=== PATIENT | male | born 1980 | race Caucasian/White ===

== ENCOUNTER 2016-11-16 10:33 | Emergency (ER) | payer BC ==
--- NOTE | 2016-11-16 11:08 | Emergency Department Record ---
History of Present Illness - General Chief Complaint: Syncope Stated Complaint: PASSED OUT AT WORK Time Seen by Provider: 11/16/16 10:46 Source: Patient Mode of Arrival: Ambulatory Limitations: No limitations - History of Present Illness Initial Comments: The patient is here due to possibly passing out at work an hour ago. He states he was working outside like he normally does and then woke up on the ground. He thinks he passed out and has 10-15 minutes that he cannot account for. There were no witnesses to the event. He denies any injury or neck pain and denied any CP, SOB, or RAFI prior. The patient also passed out 2 weeks ago and did fx some ribs. On that visit he was seen at [facility] and was admitted to the hospital overnight. He also did have an EST yesterday at [facility] that was reported to be normal. The patient has no hx of similar issues. The patient has no family hx of similar issues or seizures. MD Complaint: Loss of consciousness Onset/Timin -: Minutes(s) Current Symptoms: None History: Previous syncopal episode Treatments Prior to Arrival: None - Veronica Coma Scale Eye Response: (4) Open spontaneously Motor Response: (6) Obeys commands Verbal Response: (5) Oriented [place] Total: 15 - Related Data Home Medications Medication Instructions Recorded Confirmed Last Taken Fluoxetine HCl [Prozac] 30 mg PO DAILY 11/16/16 11/16/16 11/16/16 Omeprazole [Prilosec] 20 mg PO DAILY 11/16/16 11/16/16 11/16/16 Allergies Allergy/AdvReac Type Severity Reaction Status Date / Time bupropion [From Wellbutrin] AdvReac HYPERSENSIT Verified 11/16/16 10:45 [facility] Travel Screening - Travel/Exposure Within Last 30 Days Have you traveled within the last 30 days?: No - Travel/Exposure Within Last Year Have you traveled outside the [place] in the last year?: No - Additonal Travel Details Have you been exposed to anyone with a communicable illness?: No - Travel Symptoms Symptom Screening: None Review of Systems Constitutional: Denies: Chills, Fever Eyes: Denies: Eye discharge ENT: Denies: Congestion Respiratory: Denies: Cough, Dyspnea Past Medical History - SOCIAL HISTORY Smoking Status: Current every day smoker Alcohol Use: Occasional Drug Use: None - RESPIRATORY Hx Respiratory Disorders: No - CARDIOVASCULAR Hx Cardio Disorders: No - NEURO Hx Neuro Disorders: Yes Hx Seizures: Yes (younger) - GI Hx Abdominal Pain: Yes Hx Ulcer: Yes - Hx Genitourinary Disorders: No - ENDOCRINE Hx Endocrine Disorders: No - MUSCULOSKELETAL Hx Musculoskeletal Disorders: No - PSYCH Hx Psych Problems: No - HEMATOLOGY/ONCOLOGY Hx Hematology/Oncology Disorders: No Family Medical History Any Significant Family History?: No Physical Exam - General General Appearance: Alert, Oriented x3, Cooperative, No acute distress - Head Head exam: Atraumatic, Normocephalic, Normal inspection - Eye Eye exam: Normal appearance, PERRL - ENT Throat exam: Normal inspection. negative: Tonsillar erythema, Tonsillar exudate - Neck Neck exam: Normal inspection, Full ROM. negative: Tenderness - Respiratory Respiratory exam: Normal lung sounds bilaterally. negative: Respiratory distress - Cardiovascular Cardiovascular Exam: Regular rate, Normal rhythm, Normal heart sounds - GI/Abdominal GI/Abdominal exam: Soft, Normal bowel sounds. negative: Tenderness - Extremities Extremities exam: Normal inspection, Full ROM, Normal capillary refill. negative: Tenderness - Neurological Neurological exam: Alert, Normal gait. negative: Abnormal gait, Motor sensory deficit - Psychiatric Psychiatric exam: negative: Agitated, Anxious - Skin Skin exam: negative: Rash Course Vital Signs 11/16/16 10:33 Temperature 97.8 F Pulse Rate 72 Respiratory 16 Rate Blood Pressure 127/93 Pulse Ox 96 - Reevaluation(s) Reevaluation #1: The patient is doing very well at this time. He denies any pain, dizziness, lightheadedness, RAFI, SOB or [place]. He has been ambulating normally and his head CT is neg. I did review the admission from [facility] and also the EST from yesterday that was normal. I did discuss the case with Maribel ([employer]) who is at Dr. Alvarado's office and she assures me she will F/U with the patient in the office and will possibly refer the patient to a Director Inbound Sales. 11/16/16 12:39 Medical Decision Making - Data Complexity MDM Data: Labs Ordered and/or Reviewed, X-Ray Ordered and/or Reviewed, EKG Ordered and/or Reviewed - Lab Data Result diagrams: 11/16/16 11:08 11/16/16 11:08 - EKG Data -: EKG Interpreted by Me EKG: No Acute Changes, Normal EKG - Radiology Data Radiology results: Report reviewed (Head CT: No acute changes per Rad.) Disposition Disposition: Discharge Clinical Impression: Syncope, near Disposition: Home, Self-Care Condition: (1) Good Instructions: Syncope (ED) Additional Instructions: Please drink plenty of fluids and please see your PCP for recheck tomorrow or Sunday. Please do not drive until this issues is resolved. Off work today and tomorrow. Please return to the ER for any problems or issues. Forms: Patient Portal Access Time of Disposition: 12:36 Quality - Quality Measures Quality Measures: N/A - Blood Pressure Screening View Details: Yes Blood Pressure Classification: Pre-Hypertensive BP Reading Systolic Measurement: 122 Diastolic Measurement: 85 Screening for High Blood Pressure: < Pre-Hypertensive BP, F/U Documented > [ [id number]] Pre-Hypertensive Follow-up Interventions: Follow-up with rescreen every year.
[2016-11-16 11:12] LABS: EOS % 5.7 % (0-6); GRAN % 50.3 % (47-80); HEMATOCRIT 44.4 % (42.0-52.0); HEMOGLOBIN 15.9 gm/dl (14.0-18.0); MEAN CELL VOLUME 84.4 fl (81-97); MEAN CORPUSCULAR HEMOGLOBIN 30.2 pg (27-33); MEAN CORPUSCULAR HGB CONC 35.8 g/dl (32-36); MEAN PLATELET VOLUME 9.7 fl (7.4-10.4); PLATELET COUNT 360 K/uL (130-400); RED BLOOD COUNT 5.26 M/uL (4.40-5.70); RED CELL DISTRIBUTION WIDTH 12.5 % (11.5-14.5); WHITE BLOOD COUNT W/O DIFF 8.4 K/uL (4.2-12.2)
[2016-11-16 11:23] LABS: INR 0.96; PARTIAL THROMBOPLASTIN TIME 26.1 SECONDS (24.5-39.1); PROTHROMBIN TIME (PATIENT) 10.8 SECONDS (9.5-12.1)
[2016-11-16 11:24] LABS: ALB/GLOB RATIO 1.4 (1.1-1.8); ALBUMIN 4.8 gm/dL (3.5-5.0); ALKALINE PHOSPHATASE 96 U/L (38-126); ALT/SGPT 41 U/L (21-72); ANION GAP 11.7 (7-16); AST/SGOT 21 U/L (17-59); BILIRUBIN,TOTAL 0.92 mg/dL (0.2-1.3); BLOOD UREA NITROGEN 13 mg/dL (9-20); CARBON DIOXIDE 23.3 mmol/L (22-30); CREATINE PHOSPHOKINASE 133 U/L (55-170); EST GLOMERULAR FILTRATION RATE > 60 ml/min; GLUCOSE,RANDOM 94 mg/dL (70-110); TOTAL PROTEIN 8.3 gm/dL (6.3-8.2)
[2016-11-16 11:35] LABS: CKMB 1.1 ug/L (0-6)
[2016-11-16 11:39] LABS: TROPONIN I < 0.012 ng/mL (0.00-0.034)
--- NOTE | 2016-11-17 07:49 | CT SCAN REPORT ---
EXAM: CT OF THE HEAD WITHOUT CONTRAST HISTORY: SYNCOPAL EPISODE WITH WITNESSED LOSS OF CONSCIOUSNESS. SIMILAR EPISODE IN AUGUST OF 2016. TECHNIQUE: Routine noncontrast CT examination of the head was performed. Comparison: None at this time. Correlation is made with report from CT of the head without contrast examination from [facility] dated 08/11/13. FINDINGS: The ventricles and subarachnoid spaces are normal in size. No suspicious area of abnormally increased or decreased attenuation is noted throughout the brain substance. Near the anterior inferior margin of the right thalamus near its junction with the internal capsule is a hypodense area measuring 4 x 4 mm. This is consistent with a prominent perivascular space or less likely old lacunar infarct. On the report from the prior examination, a cystic area was described on the right. The duran white interfaces are distinct. No abnormal extraaxial fluid collection is seen. No skull fracture is identified. The visualized paranasal sinuses and mastoid air cells are clear. The orbits as visualized are unremarkable. IMPRESSION: 1. NO CT EVIDENCE OF ACUTE MAJOR VESSEL INFARCT, INTRACRANIAL HEMORRHAGE, MASS , NOR SKULL FRACTURE. 2. 4 MM HYPODENSE LESION NEAR THE JUNCTION OF THE ANTERIOR INFERIOR MARGIN OF THE RIGHT THALAMUS AND RIGHT INTERNAL CAPSULE CONSISTENT WITH A PROMINENT PERIVASCULAR SPACE OR LESS LIKELY LACUNAR INFARCT. JOB NUMBER: [id number] MTDD
== END 2016-11-16 12:42 | disposition home or self-care (01) ==
LOC: ER 10:33
DX: R55 Syncope and collapse (principal)
CPT/HCPCS: 70450; 80053; 82550; 82553; 84484; 85025; 85610; 85730; 93005; 93010; 99284